=== PATIENT | male | born 1965 | race Caucasian/White ===

== ENCOUNTER 2024-05-12 13:41 | Outpatient (CLI) | payer BC, SELFPAY ==
--- NOTE | 2024-05-12 13:48 | CT_ITS ---
FINAL REPORT TECHNIQUE: After the administration of intravenous contrast, axial images were obtained through the abdomen and pelvis by computed tomography. This study was performed with technique to keep radiation doses as low as reasonably achievable, (ALARA). Individualized dose reduction techniques using automated exposure control or adjustment of the MA and/or KV according to the patient's size were employed. CLINICAL HISTORY: N/V/abd pain/fever no BM x 3 days r/o SBO FINDINGS: Abdomen: The lung bases are clear. The liver is normal in size and attenuation. There is mild, nonspecific gallbladder wall thickening. The spleen is unremarkable. The adrenals are normal. The pancreas is unremarkable. The kidneys enhance appropriately. There is a small left renal cyst measuring less than 1 cm which is likely benign. No follow-up needed. The aorta is normal in caliber. There is no free fluid or adenopathy. Pelvis: The appendix is normal. There is mild stenosis of the right common iliac artery. The urinary bladder is unremarkable. There is no free fluid or adenopathy. IMPRESSION: Mild, nonspecific gallbladder wall thickening. Reviewed, Interpreted and Dictated by Rajiv Wiley III, MD Transcribed by Kalee Ceja Authenticated and [facility]
[2024-05-12 14:12] LABS: Basophils # 0.2 K/mm3 (0-0.2); Basophils % 1.1 % (0.1-2.0); Eosinophils # 0.1 K/mm3 (0.0-0.4); Eosinophils % 0.5 % (0.1-12.0); Hematocrit 50.1 % (42.0-52.0); Hemoglobin 17.6 g/dL (14.1-18.0); Lymphocytes # 2.3 K/mm3 (0.7-4.5); Lymphocytes % 15.4 % (10-50); Mean Corpuscular HGB Conc 35.1 g/dL (31.8-35.4); Mean Corpuscular Hemoglobin 31.3 pg (27.0-31.2); Mean Corpuscular Volume 89.1 fl (80-94); Mean Platelet Volume 8.2 fl (7.4-10.4); Monocytes # 1.2 K/mm3 (0.1-1.0); Monocytes % 8.1 % (1.7-9.3); Neutrophils # 11.1 K/mm3 (1.8-7.8); Neutrophils % 74.8 % (37.0-80.0); Platelet Count 209 K/mm3 (142-424); Red Blood Count 5.63 M/mm3 (4.60-6.20); White Blood Count 14.9 K/mm3 (4.8-10.8)
[2024-05-12 14:17] LABS: Albumin Level 4.9 g/dl (3.5-5.0); Chloride 92 mmol/L (98-107); Sodium 129 mmol/L (136-145)
[2024-05-12 14:18] LABS: Potassium 3.5 mmoL/L (3.5-5.1)
[2024-05-12 14:20] LABS: Alanine Aminotransferase 22 U/L (12-78); Albumin/Globulin Ratio 1.7 (1.1-1.8); Alkaline Phosphatase 128 U/L (38-126); Anion Gap 17.5 mEq/L (5-15); Aspartate Amino Transferase 28 U/L (17-59); Bilirubin,Total 1.1 mg/dl (0.2-1.3); Blood Urea Nitrogen 16 mg/dl (9-20); Carbon Dioxide 23 mmol/L (22.0-30.0); Estimated Glomerular Filt Rate 86 ml/min (>60); GFR (African American) 104 ML/MIN (>60); Globulin 2.9 g/dL (1.3-3.2); Total Protein,Serum 7.8 g/dl (6.3-8.2)
[2024-05-12 14:21] LABS: Calcium 9.4 mg/dl (8.4-10.2); Glucose 305 mg/dl (74-100)
[2024-05-12 14:41] LABS: Lipase 1595 U/L (23-300)
[2024-05-12] MEDS: SODIUM CHLORIDE 0.9% 10ML SYR (RAD ONLY) 10 ML IV (15:05)
[2024-05-12] MEDS: IOPAMIDOL-370 (76%);100ML BOTTLE 75 ML IV (15:05)
== END 2024-05-12 23:59 | disposition home or self-care (01) ==
LOC: RAD 13:43
PROVIDERS: PCP Nurse Practitioner Family; Visit Provider Internal Medicine Gastroenterology
DX: R10.84 Generalized abdominal pain (principal); R10.13 Epigastric pain; R50.9 Fever, unspecified; R11.2 Nausea with vomiting, unspecified; K59.00 Constipation, unspecified
CPT/HCPCS: 36415; 74177; 80053; 83690; 85025; Q9967

== ENCOUNTER 2024-05-12 17:53 | Observation (INO) | payer BC, SELFPAY ==
--- NOTE | 2024-05-12 19:47 | ECG_ITS ---
APPROVED REPORT Exam: Resting ECG HR:87 bpm ECG Measurements Heart Rate 87 AXES MN 170 P 71 QRSd 100 QRS 67 QT 347 T 75 QTc 392 Conclusion SINUS RHYTHM NORMAL ECG UNCONFIRMED REPORT Electronically signed by : Haroon Dumont MD 05/14/2024 08:15:56
[2024-05-12 20:00] VITALS: BP 146/97; PULSE 101; RESP 18; TEMP 37.7; O2SAT 98
[2024-05-12 21:00] VITALS: PULSE 101; RESP 18; O2SAT 98
[2024-05-12] MEDS: LORazepam 1MG TABLET 1 MG PO (21:52)
[2024-05-12] MEDS: 0.9 % SODIUM CHLORIDE 1000ML 1,000 ML 999 ML IV (22:51)
[2024-05-12 23:25] LABS: Basophils # 0.1 K/mm3 (0-0.2); Basophils % 0.8 % (0.1-2.0); Eosinophils # 0.1 K/mm3 (0.0-0.4); Eosinophils % 0.5 % (0.1-12.0); Hematocrit 46.8 % (42.0-52.0); Hemoglobin 16.6 g/dL (14.1-18.0); Lymphocytes # 2.4 K/mm3 (0.7-4.5); Mean Corpuscular HGB Conc 35.5 g/dL (31.8-35.4); Mean Corpuscular Hemoglobin 30.9 pg (27.0-31.2); Mean Platelet Volume 8.2 fl (7.4-10.4); Monocytes # 0.8 K/mm3 (0.1-1.0); Monocytes % 7.3 % (1.7-9.3); Neutrophils # 7.5 K/mm3 (1.8-7.8); Neutrophils % 69.3 % (37.0-80.0); Platelet Count 179 K/mm3 (142-424); Red Blood Count 5.38 M/mm3 (4.60-6.20); White Blood Count 10.9 K/mm3 (4.8-10.8)
[2024-05-12 23:32] LABS: Albumin Level 4.4 g/dl (3.5-5.0); Chloride 91 mmol/L (98-107); Potassium 3.1 mmoL/L (3.5-5.1); Sodium 126 mmol/L (136-145)
[2024-05-12 23:35] LABS: Alanine Aminotransferase 20 U/L (12-78); Albumin/Globulin Ratio 1.8 (1.1-1.8); Alkaline Phosphatase 110 U/L (38-126); Anion Gap 13.1 mEq/L (5-15); Aspartate Amino Transferase 23 U/L (17-59); Bilirubin,Total 0.9 mg/dl (0.2-1.3); Blood Urea Nitrogen 15 mg/dl (9-20); Calcium 8.8 mg/dl (8.4-10.2); Carbon Dioxide 25 mmol/L (22.0-30.0); Cholesterol 155 mg/dl (140-200); Estimated Glomerular Filt Rate 99 ml/min (>60); GFR (African American) 119 ML/MIN (>60); Globulin 2.4 g/dL (1.3-3.2); Glucose 248 mg/dl (74-100); Lipase 345 U/L (23-300); Total Protein,Serum 6.8 g/dl (6.3-8.2); Triglycerides 140 mg/dl (30-150); VLDL Cholesterol 28 mg/dL (0-40)
[2024-05-12 23:36] LABS: Chol/HDL Ratio 5.7 (1-3.5); HDL Cholesterol 27 mg/dl (40-60)
[2024-05-12 23:46] LABS: Direct LDL Cholesterol 94.45 mg/dL (100-129)
[2024-05-12 23:49] LABS: Lactate Venous 1.7 mmol/L (0.4-2.0)
[2024-05-12] MEDS: TRAZODONE 50MG TABLET 100 MG PO (23:49)
[2024-05-13] VITALS: BMI 21.9
[2024-05-13 00:02] LABS: Troponin I < 0.01 ng/ml (0.00-0.034)
--- NOTE | 2024-05-13 01:39 | PC.NURSE ---
Late Entry: (21:39) Patient's admission and home medication reconciliation completed. Yash [employer]OR[employer] was notified [id number]. Patient refused fingerstick glucose at bedside for 21:00; will reevaluate in the morning for next fingerstick glucose check. Patient's home medications were locked in [facility]. Patient is currently resting supine with at bedside. Patient denies any further complaints thus far.
[2024-05-13 04:00] VITALS: BP 151/92; PULSE 76; RESP 18; TEMP 37; O2SAT 97; BMI 21.9
--- NOTE | 2024-05-13 04:17 | PC.NURSE ---
Addendum entered by Sidra Olson RN 05/13/24 06:20: Patient's fingerstick blood glucose for 06:00 this morning was 215. Patient stated that he does not want to take insulin and refuses it at this time. Original Note: Mr Bettencourt was newly admitted yesterday evening during the previous shift as a direct admit for cholecystitis. He has a history of pancreatitis, hypertension, and diabetes. He has reported mild discomfort in the epigastric area and upper abdomen, but has not requested for any pain medication this shift. He is alert and oriented x4. His admission and home medication reconciliation were completed this shift (see prior note). Patient's has remained at bedside throughout the night. Patient projected anxiety and fear during needle sticks and IV insertion; a one time dose of 1 mg of lorazepam was given to the patient per OCT prior to IV insertion this shift. Patient tolerated insertion well. Patient received trazodone PO per MAR this shift and a 1000 mL bag of normal saline at 999 mL/hr intravenously. Upon auscultation, patient's lung sounds were clear and bowel sounds were active. S1/S2 heart sounds were heard. Patient received ice water and Gatorade prior to midnight; he has remained NPO since. Patient is currently observed to have eyes closed, respirations even and unlabored on room air, and no apparent distress. Blood pressure, heart rate, and temperature readings were slightly elevated this shift. No acute changes noted thus far. Patient does not have any complaints at this time. Call light within reach.
[2024-05-13 07:24] LABS: Basophils # 0.1 K/mm3 (0-0.2); Basophils % 0.5 % (0.1-2.0); Eosinophils % 0.3 % (0.1-12.0); Hematocrit 43.8 % (42.0-52.0); Hemoglobin 15.6 g/dL (14.1-18.0); Lymphocytes # 3.1 K/mm3 (0.7-4.5); Lymphocytes % 32.4 % (10-50); Mean Corpuscular HGB Conc 35.6 g/dL (31.8-35.4); Mean Corpuscular Volume 89.6 fl (80-94); Mean Platelet Volume 8.7 fl (7.4-10.4); Monocytes # 0.7 K/mm3 (0.1-1.0); Monocytes % 7.5 % (1.7-9.3); Neutrophils # 5.6 K/mm3 (1.8-7.8); Neutrophils % 59.3 % (37.0-80.0); Platelet Count 166 K/mm3 (142-424); Red Blood Count 4.88 M/mm3 (4.60-6.20); Red Cell Distribution Width 13.2 % (11.5-17.5); White Blood Count 9.4 K/mm3 (4.8-10.8)
[2024-05-13 07:28] LABS: Albumin Level 3.9 g/dl (3.5-5.0); Chloride 95 mmol/L (98-107); Potassium 3.2 mmoL/L (3.5-5.1); Sodium 128 mmol/L (136-145)
[2024-05-13 07:31] LABS: Alanine Aminotransferase 15 U/L (12-78); Albumin/Globulin Ratio 1.8 (1.1-1.8); Alkaline Phosphatase 98 U/L (38-126); Anion Gap 10.2 mEq/L (5-15); Aspartate Amino Transferase 19 U/L (17-59); Bilirubin,Total 1.1 mg/dl (0.2-1.3); Blood Urea Nitrogen 14 mg/dl (9-20); Carbon Dioxide 26 mmol/L (22.0-30.0); Creatinine Clearance Estimated 86 mL/min (50-200); Estimated Glomerular Filt Rate 86 ml/min (>60); GFR (African American) 104 ML/MIN (>60); Globulin 2.2 g/dL (1.3-3.2); Total Protein,Serum 6.1 g/dl (6.3-8.2)
[2024-05-13 07:32] LABS: Calcium 8.5 mg/dl (8.4-10.2); Glucose 204 mg/dl (74-100)
[2024-05-13 07:34] LABS: POC Glucose,Bedside 215 (70-110)
--- NOTE | 2024-05-13 07:39 | P.PN_ITS ---
Subjective *Date: 05/13/24 *Time: 17:11 Interval history: Patient states he is feeling somewhat better this morning. No nausea or vomiting overnight. Pain resolving. Interested in eating. No diarrhea overnight. Stable on room air. Medical Exam Vital signs and Labs for Last 24 Hours: Vital Signs Temp Pulse Resp BP Pulse Ox O2 Del Method 05/13/24 07:00 Room Air 05/13/24 05:00 Room Air 05/13/24 04:00 98.6 F 76 18 151/92 H 97 Room Air 05/13/24 03:00 Room Air 05/13/24 01:00 Room Air 05/12/24 23:00 Room Air 05/12/24 21:00 101 H 18 98 Room Air 05/12/24 21:00 Room Air 05/12/24 20:00 99.9 F H 101 H 18 146/97 H 98 Room Air Intake and Output 05/12/24 05/12/24 05/13/24 15:59 23:59 07:59 Intake Total 1240 / 1240 Output Total 0 / 0 Balance 1240 / 1240 Intake: Intake, Oral Amount 240 / 240 Infusion Intake 1000 / 1000 0.9 % Sodium Chloride 1000ML 1, 1000 / 1000 000 ml @ 999 mls/hr IV .Q1H1M ONE Rx#:[id number] Output: Output, Urine Amount 0 / 0 Other: Number of Unmeasured Voids 1 Weight 69.536 kg Patient Weight 05/13/24 23:59 Weight 69.536 kg Laboratory Results - last 24 hr 05/12/24 18:41: VBG Lactic Acid 1.7 05/12/24 23:11: WBC 10.9 H D, RBC 5.38, Hgb 16.6, Hct 46.8, MCV 87.0, MCH 30.9, MCHC 35.5 H, RDW 13.0, Plt Count 179, MPV 8.2, Neut % (Auto) 69.3, Lymph % (Auto) 22.0, [place] % (Auto) 7.3, Eos % (Auto) 0.5, Baso % (Auto) 0.8, Neut # (Auto) 7.5, Lymph # (Auto) 2.4, [place] # (Auto) 0.8, Eos # (Auto) 0.1, Baso # (Auto) 0.1, Sodium 126 L, Potassium 3.1 L, Chloride 91 L, Carbon Dioxide 25, Anion Gap 13.1, BUN 15, Creatinine 0.80, Estimated GFR 99, Est GFR ( Amer) 119, Glucose 248 H, Calcium 8.8, Total Bilirubin 0.9, AST 23, ALT 20, Alkaline Phosphatase 110, Troponin I < 0.01, Total Protein 6.8, Albumin 4.4 D, Globulin 2.4, Albumin/Globulin Ratio 1.8, Triglycerides 140, Cholesterol 155, LDL Cholesterol Direct 94.45 L, VLDL Cholesterol 28, HDL Cholesterol 27 L, Cholesterol/HDL Ratio 5.7 H, Lipase 345 H 05/13/24 06:17: POC Glucose 215 H 05/13/24 06:30: WBC 9.4, RBC 4.88, Hgb 15.6, Hct 43.8, MCV 89.6, MCH 32.0 H, MCHC 35.6 H, RDW 13.2, Plt Count 166, MPV 8.7, Neut % (Auto) 59.3, Lymph % (Auto) 32.4, [place] % (Auto) 7.5, Eos % (Auto) 0.3, Baso % (Auto) 0.5, Neut # (Auto) 5.6, Lymph # (Auto) 3.1, [place] # (Auto) 0.7, Eos # (Auto) 0.0, Baso # (Auto) 0.1, Sodium 128 L, Potassium 3.2 L, Chloride 95 L, Carbon Dioxide 26, Anion Gap 10.2, BUN 14, Creatinine 0.90, Estimated Creat Clear 86, Estimated GFR 86, Est GFR ( Amer) 104, Glucose 204 H, Calcium 8.5, Total Bilirubin 1.1, AST 19, ALT 15, Alkaline Phosphatase 98, Total Protein 6.1 L, Albumin 3.9 D, Globulin 2.2, Albumin/Globulin Ratio 1.8 I & O for Labs for Last 24 Hours: Intake & Output 05/10/24 05/11/24 05/12/24 05/13/24 23:59 23:59 23:59 23:59 Intake Total 1240 / 1240 Output Total 0 / 0 Balance 1240 / 1240 Weight 69.536 kg Constitutional: Present no acute distress, thin and cooperative Head: Present atraumatic and normocephalic ENT: Present normal exam Respiratory: Present normal respiratory effort; Absent rhonchi, wheezes or crackles Cardiac: Present Reg Rate and Rhythm GI: Present soft and normal bowel sounds; Absent distention or tenderness Extremities: Present normal inspection and full ROM Skin: Present intact; Absent erythema Neuro: Present Grossly Intact, alert, awake, oriented x 3 and moves all extremities Assessment and Plan *Assessment and plan (1) Nausea & vomiting: Status: Acute Category: Medical Code(s): R11.2 - Nausea with vomiting, unspecified (2) Epigastric pain: Status: Acute Category: Medical Code(s): R10.13 - Epigastric pain (3) Acute pancreatitis: Status: Acute Category: Medical Code(s): K85.90 - Acute pancreatitis without necrosis or infection, unspecified (4) Cholecystitis: Status: Acute Category: Medical Code(s): K81.9 - Cholecystitis, unspecified (5) Diabetes: Status: Acute Category: Medical Code(s): E11.9 - Type 2 diabetes mellitus without complications (6) HTN (hypertension): Status: Acute Category: Medical Code(s): I10 - Essential (primary) hypertension Plan Paul Bettencourt is a 59 year old made with a medical history significant for type 2 diabetes, hypertension who is a direct admit from our GI clinic for intractable nausea/vomiting and abdominal pain. I spoke with patient's PCP Trinity Vela and accepted patient for direct admission after CT abdomen revealed gallbladder wall thickening and outpatient bloodwork revealed elevated lipase to 1595 suggesting acute gallstone pancreatitis. On arrival to the floor, patient was sitting comfortably in chair without acute distress. He states he has been have N/V since Sunday (5 days) which has actually improved today, however he states he has not tried to eat anything today. He reports eating a large meal on Sunday and soon after symptoms of epigastric and RUQ abdominal began with non- bilious vomiting. Denies diarrhea. He went to his GI office yesterday who obtained blood and CT abdomen/pelvis with findings mentioned. Patient denies alcohol use, with no history of pancreatitis or cholecystisis. 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 Feeling somewhat better this morning. GI has seen patient. Given his improvement in symptoms, will advance diet. Problems addressed as follows: #Suspected acute gallstone pancreatitis, resolving #Mild cholecystitis, resolving #Intractable nausea/vomiting, resolving - CT abdomen/pelvis on 05/12/24 shows nonspecific gallbladder wall thickening. Outpatient lipase elevated to 1595, ALP mildly elevated 128. Na 126. - Patient's symptoms seemed to have improved overnight. No further nausea or vomiting -Initiate on clear liquid diet -Lipase improving, down to 345 today. White count normalized 9.4. Sodium improving at 128. Potassium 3.2. Replace IV with 20 mEq. Kidney function normal. - Repeat CBC, CMP, magnesium ordered for the morning - Discussed case with GI this morning, recommend advancing diet. Further management as an outpatient. - Patient can ration for possible cholecystectomy as an outpatient. #Type 2 diabetes - LDSSI, ACHS glucose checks. A1c ordered for the morning. #Hypertension - Continue amlodipine 10 mg daily, carvedilol 25 mg twice daily. Continue Elavil 50 mg nightly for sleep and mood. Along with trazodone 100 mg nightly. Lovenox 40mg FULL CODE Advance diet today. Initiate clears. If tolerates, will advance to full this evening
--- NOTE | 2024-05-13 07:44 | HMH.PHAINT1 ---
Pharmacy Intervention Comments: Home medications verified using list from pharmacy.
[2024-05-13 08:00] VITALS: BP 127/74; PULSE 78; RESP 18; TEMP 37.7; O2SAT 98
[2024-05-13 08:26] LABS: Lipase 269 U/L (23-300)
--- NOTE | 2024-05-13 08:50 | US_ITS ---
FINAL REPORT TECHNIQUE: Sonographic images of the right upper quadrant were obtained. CLINICAL HISTORY: Evaluate gallbladder and pancreas. Acute upper abdominal pain. FINDINGS: The pancreas is partially obscured.The liver has an unremarkable appearance. There is mild gallbladder wall thickening up to 4 mm. This is nonspecific. There are no gallstones identified. There is no evidence of biliary ductal dilatation.The common duct measures 4mm. Limited images of the right kidney are unremarkable. IMPRESSION: Mild nonspecific gallbladder wall thickening. Otherwise, unremarkable right upper quadrant ultrasound. Reviewed, Interpreted and Dictated by Rajiv Wiley III, MD Transcribed by Leana Small PA-C Authenticated and . [facility]
[2024-05-13] MEDS: CARVEDILOL 25MG TABLET 25 MG PO ×2 (09:00→20:15)
[2024-05-13] MEDS: KCl 10mEq/100ml 100 ML 100 MEQ IV ×2 (09:00→12:05)
[2024-05-13] MEDS: AMLODIPINE 10MG TABLET 10 MG PO (09:00)
[2024-05-13] MEDS: LACTATED RINGERS 1000ML 1,000 ML 125 ML IV (09:32)
--- NOTE | 2024-05-13 10:04 | EXP.HP ---
History of Present Illness *Admission Date: 05/12/24 *Reason for visit:: Intractable nausea/vomiting, abdominal pain *History of present illness: Paul Bettencourt is a 59 year old made with a medical history significant for type 2 diabetes, hypertension who is a direct admit from our GI clinic for intractable nausea/vomiting and abdominal pain. I spoke with patient's PCP Angeline Vela and accepted patient for direct admission after CT abdomen revealed gallbladder wall thickening and outpatient bloodwork revealed elevated lipase to 1595 suggesting acute gallstone pancreatitis. On arrival to the floor, patient was sitting comfortably in chair without acute distress. He states he has been have N/V since Sunday (5 days) which has actually improved today, however he states he has not tried to eat anything today. He reports eating a large meal on Sunday and soon after symptoms of epigastric and RUQ abdominal began with non-bilious vomiting. Denies diarrhea. He went to his PCP's office yesterday who obtained blood and CT abdomen/pelvis with findings mentioned. Patient denies alcohol use, with no history of pancreatitis or cholecystisis. 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 [facility] Disclaimer: The information contained in this section may have been updated after the patient was seen, as this information can be updated by other users. Medical History (Updated 05/13/24 @ 10:32 by Desmond Malin MD) HTN (hypertension) Diabetes Family History (Updated 05/12/24 @ 22:14 by Sidra Olson RN) Other Alzheimer dementia Diabetes Social History (Updated 05/12/24 @ 22:15 by Sidra Olson RN) Smoking Status: Former smoker alcohol intake: never current occupational status: employed Travel in the last 8 weeks: None Other Medical History Have you received the Flu Vaccine for this season: No Have you received the Pneumonia Vaccine: No Meds Home Medications and Allergies Home Medications ?Medication ?Instructions ?Recorded ?Confirmed ?Type amitriptyline 50 mg tablet 50 mg PO HS 05/12/24 05/12/24 History amlodipine 10 mg tablet 10 mg PO DAILY 05/12/24 05/12/24 History carvedilol 25 mg tablet 25 mg PO BID 05/12/24 05/12/24 History glipizide 5 mg tablet 5 mg PO DAILY 05/12/24 05/12/24 History pravastatin 20 mg tablet 20 mg PO HS 05/12/24 05/12/24 History trazodone 100 mg tablet 100 mg PO HS 05/12/24 05/13/24 History New Prescriptions to Start Prescriptions: Allergies Allergy/AdvReac Type Severity Reaction Status Date / Time Lisinopril AdvReac Uncoded 05/12/24 12:53 Exam Data for Last 24 hours Vital signs and Labs for Last 24 Hours: Temp Pulse Resp BP Pulse Ox O2 Del Method 98.6 F 76 18 151/92 H 97 Room Air 05/13/24 04:00 05/13/24 04:00 05/13/24 04:00 05/13/24 04:00 05/13/24 04:00 05/13/24 08:00 Laboratory Results - last 24 hr 05/12/24 18:41: VBG Lactic Acid 1.7 05/12/24 23:11: WBC 10.9 H D, RBC 5.38, Hgb 16.6, Hct 46.8, MCV 87.0, MCH 30.9, MCHC 35.5 H, RDW 13.0, Plt Count 179, MPV 8.2, Neut % (Auto) 69.3, Lymph % (Auto) 22.0, [place] % (Auto) 7.3, Eos % (Auto) 0.5, Baso % (Auto) 0.8, Neut # (Auto) 7.5, Lymph # (Auto) 2.4, [place] # (Auto) 0.8, Eos # (Auto) 0.1, Baso # (Auto) 0.1, Sodium 126 L, Potassium 3.1 L, Chloride 91 L, Carbon Dioxide 25, Anion Gap 13.1, BUN 15, Creatinine 0.80, Estimated GFR 99, Est GFR ( Amer) 119, Glucose 248 H, Calcium 8.8, Total Bilirubin 0.9, AST 23, ALT 20, Alkaline Phosphatase 110, Troponin I < 0.01, Total Protein 6.8, Albumin 4.4 D, Globulin 2.4, Albumin/Globulin Ratio 1.8, Triglycerides 140, Cholesterol 155, LDL Cholesterol Direct 94.45 L, VLDL Cholesterol 28, HDL Cholesterol 27 L, Cholesterol/HDL Ratio 5.7 H, Lipase 345 H 05/13/24 06:17: POC Glucose 215 H 05/13/24 06:30: WBC 9.4, RBC 4.88, Hgb 15.6, Hct 43.8, MCV 89.6, MCH 32.0 H, MCHC 35.6 H, RDW 13.2, Plt Count 166, MPV 8.7, Neut % (Auto) 59.3, Lymph % (Auto) 32.4, [place] % (Auto) 7.5, Eos % (Auto) 0.3, Baso % (Auto) 0.5, Neut # (Auto) 5.6, Lymph # (Auto) 3.1, [place] # (Auto) 0.7, Eos # (Auto) 0.0, Baso # (Auto) 0.1, Sodium 128 L, Potassium 3.2 L, Chloride 95 L, Carbon Dioxide 26, Anion Gap 10.2, BUN 14, Creatinine 0.90, Estimated Creat Clear 86, Estimated GFR 86, Est GFR ( Amer) 104, Glucose 204 H, Calcium 8.5, Total Bilirubin 1.1, AST 19, ALT 15, Alkaline Phosphatase 98, Total Protein 6.1 L, Albumin 3.9 D, Globulin 2.2, Albumin/Globulin Ratio 1.8, Lipase 269 I & O for Last 24 hours: Intake & Output 05/10/24 05/11/24 05/12/24 05/13/24 23:59 23:59 23:59 23:59 Intake Total 1440 / 1440 Output Total 0 / 0 Balance 1440 / 1440 Weight 69.536 kg Constitutional Constitutional: no acute distress *Routine HEENT Exam Head: Present normocephalic Eye: Present EOMI and PERRL ENT: Present mucous membranes moist *Routine Neck Exam Neck: Present supple; Absent lymphadenopathy *Routine Respiratory Exam Respiratory: Present CTA bilaterally *Routine Cardiovascular Exam Cardiovascular: Present RRR *Routine Abdominal Exam Abdominal: Present soft and normoactive bowel sounds; Absent tenderness Comments: Mild RUQ and epigastric tenderness with deep palpation. *Routine Rectal Exam Rectal:: deferred *Routine Genitalia Exam Genitalia:: deferred *Routine Extremities Exam Extremities: Absent cyanosis, clubbing or edema *Routine Skin Exam Skin: Present warm; Absent rash *Routine Neurological Exam Neurological: Present alert and oriented X3 Assessment and Plan *Assessment and plan (1) Nausea & vomiting: Status: Acute Category: Medical Code(s): R11.2 - Nausea with vomiting, unspecified (2) Epigastric pain: Status: Acute Category: Medical Code(s): R10.13 - Epigastric pain (3) Acute pancreatitis: Status: Acute Category: Medical Code(s): K85.90 - Acute pancreatitis without necrosis or infection, unspecified (4) Cholecystitis: Status: Acute Category: Medical Code(s): K81.9 - Cholecystitis, unspecified (5) Diabetes: Status: Acute Category: Medical Code(s): E11.9 - Type 2 diabetes mellitus without complications (6) HTN (hypertension): Status: Acute Category: Medical Code(s): I10 - Essential (primary) hypertension Plan Paul Bettencourt is a 59 year old made with a medical history significant for type 2 diabetes, hypertension who is a direct admit from our GI clinic for intractable nausea/vomiting and abdominal pain. I spoke with patient's PCP Angeline Vela and accepted patient for direct admission after CT abdomen revealed gallbladder wall thickening and outpatient bloodwork revealed elevated lipase to 1595 suggesting acute gallstone pancreatitis. On arrival to the floor, patient was sitting comfortably in chair without acute distress. He states he has been have N/V since Sunday (5 days) which has actually improved today, however he states he has not tried to eat anything today. He reports eating a large meal on Sunday and soon after symptoms of epigastric and RUQ abdominal began with non-bilious vomiting. Denies diarrhea. He went to his PCP's office yesterday who obtained blood and CT abdomen/pelvis with findings mentioned. Patient denies alcohol use, with no history of pancreatitis or cholecystisis. 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 #Suspected acute gallstone pancreatitis, resolving #Mild cholecystitis, resolving #Intractable nausea/vomiting, resolving - CT abdomen/pelvis on 05/12/24 shows nonspecific gallbladder wall thickening. Outpatient lipase elevated to 1595, ALP mildly elevated 128. Na 126. - Patient's symptoms seemed to have improved on admission, but continues to have mild nausea, abdominal pain, and decreased PO intake. - Sequalae likely represents acute gallstone pancreatitis, mild cholecystitis, with gallstone likely having passed the CBD as lipase has normalized to 269 today. - Follow-up RUQ for further evaluation. - Consulted GI for further evaluation. NPO for now for possible ERCP. - Initial leukocytosis has resolved without antibiotics, likely reactive from N/V and abdominal pain. With hold off on antibiotics for now. Continue to monitor. - Lipid and calcium within acceptable limits to suggest hyperglycemias or hyperglycemia as the etiology for gallstone. - Patient can likely get elective cholecystectomy outpatient given that he is more stable today. #Type 2 diabetes - LDSSI, ACHS glucose checks. #Hypertension - Resumed home amlodipine, carvedilol. Lovenox 40mg FULL CODE
[2024-05-13 10:10] LABS: POC Glucose,Bedside 188 (70-110)
--- NOTE | 2024-05-13 11:50 | EXP.GE.CONS ---
History of Present Illness *Admission Date: 05/12/24 *History of present illness: This is a 59-year-old male with history of diabetes and sphincter of Oddi dysfunction diagnosed about 10 years ago who was seen in our office yesterday for nausea vomiting abdominal pain, fever chills and bodyaches at home. Patient was exquisitely tender to palpation right upper quadrant epigastric and left upper quadrant. He had had intractable nausea and vomiting since Sunday and no bowel movement since Sunday. He had dry mucous membranes. He was able to drink but not keep food down. He was urinating. Sent for stat CT and lab work. Labs showed a lipase level over 1500 with elevated white blood cell count over 14. He did have glucose level of 305 with known diabetes. He was hyponatremic at 129. CT scan showed some mild wall thickening of the gallbladder but no obvious pancreatitis. Discussed with the hospitalist who agreed to direct admission. He has been treated with electrolyte replacement and IV fluids. He started to have great improvement of his symptoms. His lipase level dropped into the 300s. His white blood cell count was down just above 10. Today the patient has had resolution of his abdominal pain. Gallbladder ultrasound notes mild wall thickening but no gallstones seen and pancreas is partially obscured. He is wanting to go home today. [facility] Disclaimer: The information contained in this section may have been updated after the patient was seen, as this information can be updated by other users. Medical History (Updated 05/13/24 @ 10:32 by Desmond Malin MD) HTN (hypertension) Diabetes Family History (Updated 05/12/24 @ 22:14 by Sidra Olson RN) Other Alzheimer dementia Diabetes Social History (Updated 05/12/24 @ 22:15 by Sidra Olson RN) Smoking Status: Former smoker alcohol intake: never current occupational status: employed Travel in the last 8 weeks: None Review of Systems Constitutional Constitutional: Reports system reviewed and no additional complaints, except as documented, Denies body ache(s), Denies chills and Denies fever(s) Eyes Eyes: Reports system reviewed and no additional complaints, except as documented ENT Ears, Nose, Mouth, and Throat: Reports system reviewed and no additional complaints, except as documented and Denies dysphagia *Cardiovascular Cardiovascular: Reports system reviewed and no additional complaints, except as documented and Denies dyspnea *Respiratory Respiratory: Reports system reviewed and no additional complaints, except as documented, Denies chest congestion, Denies cough and Denies dyspnea *Gastrointestinal Gastrointestinal: Reports system reviewed and no additional complaints, except as documented, Denies abdominal pain (Resolved), Denies belching, Denies bloating, Denies change in bowel habits, Reports constipation, Denies dyspepsia, Denies dysphagia, Denies hematochezia, Denies melena, Denies nausea (Nausea and vomiting well-controlled) and Denies vomiting *Musculoskeletal Musculoskeletal: Reports system reviewed and no additional complaints, except as documented *Neurologic Neurologic: Reports system reviewed and no additional complaints, except as documented Meds Home Medications and Allergies Home Medications ?Medication ?Instructions ?Recorded ?Confirmed ?Type amitriptyline 50 mg tablet 50 mg PO HS 05/12/24 05/12/24 History amlodipine 10 mg tablet 10 mg PO DAILY 05/12/24 05/12/24 History carvedilol 25 mg tablet 25 mg PO BID 05/12/24 05/12/24 History glipizide 5 mg tablet 5 mg PO DAILY 05/12/24 05/12/24 History pravastatin 20 mg tablet 20 mg PO HS 05/12/24 05/12/24 History trazodone 100 mg tablet 100 mg PO HS 05/12/24 05/13/24 History New Prescriptions to Start Prescriptions: Allergies Allergy/AdvReac Type Severity Reaction Status Date / Time Lisinopril AdvReac Uncoded 05/12/24 12:53 Exam (Inpt) Vital signs and Labs for Last 24 Hours: Temp Pulse Resp BP Pulse Ox O2 Del Method 99.9 F H 78 18 127/74 98 Room Air 05/13/24 08:00 05/13/24 08:00 05/13/24 08:00 05/13/24 08:00 05/13/24 08:00 05/13/24 10:16 Laboratory Results - last 24 hr 05/12/24 18:41: VBG Lactic Acid 1.7 05/12/24 23:11: WBC 10.9 H D, RBC 5.38, Hgb 16.6, Hct 46.8, MCV 87.0, MCH 30.9, MCHC 35.5 H, RDW 13.0, Plt Count 179, MPV 8.2, Neut % (Auto) 69.3, Lymph % (Auto) 22.0, [place] % (Auto) 7.3, Eos % (Auto) 0.5, Baso % (Auto) 0.8, Neut # (Auto) 7.5, Lymph # (Auto) 2.4, [place] # (Auto) 0.8, Eos # (Auto) 0.1, Baso # (Auto) 0.1, Sodium 126 L, Potassium 3.1 L, Chloride 91 L, Carbon Dioxide 25, Anion Gap 13.1, BUN 15, Creatinine 0.80, Estimated GFR 99, Est GFR ( Amer) 119, Glucose 248 H, Calcium 8.8, Total Bilirubin 0.9, AST 23, ALT 20, Alkaline Phosphatase 110, Troponin I < 0.01, Total Protein 6.8, Albumin 4.4 D, Globulin 2.4, Albumin/Globulin Ratio 1.8, Triglycerides 140, Cholesterol 155, LDL Cholesterol Direct 94.45 L, VLDL Cholesterol 28, HDL Cholesterol 27 L, Cholesterol/HDL Ratio 5.7 H, Lipase 345 H 05/13/24 06:17: POC Glucose 215 H 05/13/24 06:30: WBC 9.4, RBC 4.88, Hgb 15.6, Hct 43.8, MCV 89.6, MCH 32.0 H, MCHC 35.6 H, RDW 13.2, Plt Count 166, MPV 8.7, Neut % (Auto) 59.3, Lymph % (Auto) 32.4, [place] % (Auto) 7.5, Eos % (Auto) 0.3, Baso % (Auto) 0.5, Neut # (Auto) 5.6, Lymph # (Auto) 3.1, [place] # (Auto) 0.7, Eos # (Auto) 0.0, Baso # (Auto) 0.1, Sodium 128 L, Potassium 3.2 L, Chloride 95 L, Carbon Dioxide 26, Anion Gap 10.2, BUN 14, Creatinine 0.90, Estimated Creat Clear 86, Estimated GFR 86, Est GFR ( Amer) 104, Glucose 204 H, Calcium 8.5, Total Bilirubin 1.1, AST 19, ALT 15, Alkaline Phosphatase 98, Total Protein 6.1 L, Albumin 3.9 D, Globulin 2.2, Albumin/Globulin Ratio 1.8, Lipase 269 05/13/24 10:03: POC Glucose 188 H I & O for Labs for Last 24 Hours: Intake & Output 05/10/24 05/11/24 05/12/24 05/13/24 11:59 11:59 11:59 11:59 Intake Total 1440 Output Total 0 Balance 1440 Weight 69.536 kg Constitutional: no acute distress and cooperative Head: Present normocephalic and atraumatic Neck: Present normal inspection Respiratory: Present normal respiratory effort; Absent rhonchi, stridor or wheezes Cardiac: Present Reg Rate and Rhythm GI: Present soft and normal bowel sounds; Absent distention, tenderness, guarding or Lopez's sign Results Labs 05/14/24 07:12 05/14/24 07:12 Labs: Laboratory Results - last 24 hr 05/12/24 18:41: VBG Lactic Acid 1.7 05/12/24 23:11: WBC 10.9 H D, RBC 5.38, Hgb 16.6, Hct 46.8, MCV 87.0, MCH 30.9, MCHC 35.5 H, RDW 13.0, Plt Count 179, MPV 8.2, Neut % (Auto) 69.3, Lymph % (Auto) 22.0, [place] % (Auto) 7.3, Eos % (Auto) 0.5, Baso % (Auto) 0.8, Neut # (Auto) 7.5, Lymph # (Auto) 2.4, [place] # (Auto) 0.8, Eos # (Auto) 0.1, Baso # (Auto) 0.1, Sodium 126 L, Potassium 3.1 L, Chloride 91 L, Carbon Dioxide 25, Anion Gap 13.1, BUN 15, Creatinine 0.80, Estimated GFR 99, Est GFR ( Amer) 119, Glucose 248 H, Calcium 8.8, Total Bilirubin 0.9, AST 23, ALT 20, Alkaline Phosphatase 110, Troponin I < 0.01, Total Protein 6.8, Albumin 4.4 D, Globulin 2.4, Albumin/Globulin Ratio 1.8, Triglycerides 140, Cholesterol 155, LDL Cholesterol Direct 94.45 L, VLDL Cholesterol 28, HDL Cholesterol 27 L, Cholesterol/HDL Ratio 5.7 H, Lipase 345 H 05/13/24 06:17: POC Glucose 215 H 05/13/24 06:30: WBC 9.4, RBC 4.88, Hgb 15.6, Hct 43.8, MCV 89.6, MCH 32.0 H, MCHC 35.6 H, RDW 13.2, Plt Count 166, MPV 8.7, Neut % (Auto) 59.3, Lymph % (Auto) 32.4, [place] % (Auto) 7.5, Eos % (Auto) 0.3, Baso % (Auto) 0.5, Neut # (Auto) 5.6, Lymph # (Auto) 3.1, [place] # (Auto) 0.7, Eos # (Auto) 0.0, Baso # (Auto) 0.1, Sodium 128 L, Potassium 3.2 L, Chloride 95 L, Carbon Dioxide 26, Anion Gap 10.2, BUN 14, Creatinine 0.90, Estimated Creat Clear 86, Estimated GFR 86, Est GFR ( Amer) 104, Glucose 204 H, Calcium 8.5, Total Bilirubin 1.1, AST 19, ALT 15, Alkaline Phosphatase 98, Total Protein 6.1 L, Albumin 3.9 D, Globulin 2.2, Albumin/Globulin Ratio 1.8, Lipase 269 05/13/24 10:03: POC Glucose 188 H Assessment and Plan *Assessment and plan (1) Cholecystitis: Status: Acute Category: Medical Code(s): K81.9 - Cholecystitis, unspecified (2) Acute pancreatitis: Status: Acute Category: Medical Code(s): K85.90 - Acute pancreatitis without necrosis or infection, unspecified (3) Epigastric pain: Status: Acute Category: Medical Code(s): R10.13 - Epigastric pain Plan No signs of acute pancreatitis on CT scan and limited imaging on ultrasound possible cholecystitis patient has responded well to treatment overnight. thinks that he has had intermittent episodes at this more than just 2 weeks ago and this past weekend. Given the lipase over 1500, it is possible he had some mild interstitial pancreatitis that did not show on imaging. He feels significantly better today and is would like to eat and go home if possible. I think that is reasonable and I plan to see him in the office for close follow-up. Thanks to the hospitalist team for their assistance. He is non drinker and no gallstones seen on imaging. I am happy to see this patient as an outpatient and may do a HIDA scan as an outpatient.
--- NOTE | 2024-05-13 14:30 | PC.NURSE ---
Aox 4, up ad maximino, 20g L FA LR@ 125 ML/HR, 90'S ON RA, no c/o pain or n/v, lovenox refused, GI following, 2 doses of potassium iv today.
[2024-05-13 16:00] VITALS: BP 123/87; PULSE 67; RESP 18; TEMP 37.6; O2SAT 97
[2024-05-13 16:30] LABS: POC Glucose,Bedside 233 (70-110)
[2024-05-13 20:00] VITALS: BP 121/71; PULSE 75; RESP 16; TEMP 37.2; O2SAT 97
[2024-05-13] MEDS: PRAVASTATIN 20MG TAB 20 MG PO (20:15)
[2024-05-13] MEDS: AMITRIPTYLINE 50MG TABLET 50 MG PO (20:15)
[2024-05-14] VITALS: BP 107/69; PULSE 60; RESP 16; TEMP 37.1; O2SAT 97
[2024-05-14 00:08] LABS: POC Glucose,Bedside 200 (70-110)
[2024-05-14 04:00] VITALS: BP 120/76; PULSE 55; RESP 16; TEMP 36.6; O2SAT 98; BMI 21.9
--- NOTE | 2024-05-14 04:28 | PC.NURSE ---
Addendum entered by Sidra Olson RN 05/14/24 06:12: Patient's fingerstick glucose reading at 21:00 was 200 and at 06:00 this morning, it was 156. Patient appeared very ill-tempered with staff this morning during fingerstick at bedside, as well as with lab staff, requesting to postpone his lab draws at this time. Patient has refused insulin coverage at both required times this shift. Original Note: Patient is alert and oriented x4. Patient was visited earlier this shift in the evening by friends alongside his , playing card games and listening to music. Patient ambulates independently in his room with no difficulties presented. Patient was observed to have eyes closed, respirations even and unlabored on room air, and no apparent distress throughout the majority of the night. Upon auscultation, his lung sounds were clear and bowel sounds were active; however, patient has not voiced having a bowel movement for a while and has not had one for this shift. S1/S2 heart sounds were heard. Patient did not report having any abdominal pain or nausea/vomiting this shift. Patient reports feeling much better. Patient received his scheduled PO medications per OCT and currently has lactated ringers infusing at 125 mL/hr. Patient refused insulin injections for his hospital stay despite elevated glucose readings. At this time, the patient does not have any further complaints. He is currently resting supine in bed with his in the chair at bedside. Vital signs have remained stable this shift. Gastroenterology will continue a follow-up with the patient per consultation report. No acute changes noted thus far. Call light within reach.
[2024-05-14 07:28] LABS: Basophils % 0.7 % (0.1-2.0); Eosinophils % 0.5 % (0.1-12.0); Hematocrit 39.5 % (42.0-52.0); Hemoglobin 14.1 g/dL (14.1-18.0); Lymphocytes # 2.8 K/mm3 (0.7-4.5); Lymphocytes % 44.4 % (10-50); Mean Corpuscular HGB Conc 35.8 g/dL (31.8-35.4); Mean Corpuscular Hemoglobin 32.4 pg (27.0-31.2); Mean Corpuscular Volume 90.5 fl (80-94); Mean Platelet Volume 8.6 fl (7.4-10.4); Monocytes # 0.4 K/mm3 (0.1-1.0); Monocytes % 6.8 % (1.7-9.3); Neutrophils % 47.6 % (37.0-80.0); Platelet Count 142 K/mm3 (142-424); Red Blood Count 4.36 M/mm3 (4.60-6.20); Red Cell Distribution Width 13.1 % (11.5-17.5); White Blood Count 6.4 K/mm3 (4.8-10.8)
[2024-05-14 07:36] LABS: Albumin Level 3.2 g/dl (3.5-5.0); Chloride 99 mmol/L (98-107); Potassium 3.1 mmoL/L (3.5-5.1); Sodium 130 mmol/L (136-145)
[2024-05-14 07:39] LABS: Alanine Aminotransferase 14 U/L (12-78); Albumin/Globulin Ratio 1.5 (1.1-1.8); Alkaline Phosphatase 74 U/L (38-126); Anion Gap 4.1 mEq/L (5-15); Aspartate Amino Transferase 17 U/L (17-59); Bilirubin,Total 0.9 mg/dl (0.2-1.3); Blood Urea Nitrogen 13 mg/dl (9-20); Calcium 8.1 mg/dl (8.4-10.2); Carbon Dioxide 30 mmol/L (22.0-30.0); Creatinine Clearance Estimated 86 mL/min (50-200); Estimated Glomerular Filt Rate 86 ml/min (>60); GFR (African American) 104 ML/MIN (>60); Globulin 2.1 g/dL (1.3-3.2); Glucose 147 mg/dl (74-100); Total Protein,Serum 5.3 g/dl (6.3-8.2)
--- NOTE | 2024-05-14 07:43 | EXP.DC.SUM ---
General Admission date:: 05/12/24 Discharge date: 05/14/24 HPI HPI HPI: This is a 59-year-old male with history of diabetes and sphincter of Oddi dysfunction diagnosed about 10 years ago who was seen in our office yesterday for nausea vomiting abdominal pain, fever chills and bodyaches at home. Patient was exquisitely tender to palpation right upper quadrant epigastric and left upper quadrant. He had had intractable nausea and vomiting since Sunday and no bowel movement since Sunday. He had dry mucous membranes. He was able to drink but not keep food down. He was urinating. Sent for stat CT and lab work. Labs showed a lipase level over 1500 with elevated white blood cell count over 14. He did have glucose level of 305 with known diabetes. He was hyponatremic at 129. CT scan showed some mild wall thickening of the gallbladder but no obvious pancreatitis. Discussed with the hospitalist who agreed to direct admission. He has been treated with electrolyte replacement and IV fluids. He started to have great improvement of his symptoms. His lipase level dropped into the 300s. His white blood cell count was down just above 10. Today the patient has had resolution of his abdominal pain. Gallbladder ultrasound notes mild wall thickening but no gallstones seen and pancreas is partially obscured. He is wanting to go home today. Hospital Course Hospital Course Hospital Course: Paul Bettencourt is a 59 year old made with a medical history significant for type 2 diabetes, hypertension who is a direct admit from our GI clinic for intractable nausea/vomiting and abdominal pain. I spoke with patient's PCP Angeline Vela and accepted patient for direct admission after CT abdomen revealed gallbladder wall thickening and outpatient bloodwork revealed elevated lipase to 1595 suggesting acute gallstone pancreatitis. On arrival to the floor, patient was sitting comfortably in chair without acute distress. He states he has been have N/V since Sunday (5 days) which has actually improved today, however he states he has not tried to eat anything today. He reports eating a large meal on Sunday and soon after symptoms of epigastric and RUQ abdominal began with non-bilious vomiting. Denies diarrhea. He went to his GI office yesterday who obtained blood and CT abdomen/pelvis with findings mentioned. Patient denies alcohol use, with no history of pancreatitis or cholecystisis. 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 Feeling somewhat better this morning. GI has seen patient. Given his improvement in symptoms, diet advanced. Tolerating intake. Pain more or less resolved. Needs outpatient follow-up with HIDA scan. Stable to discharge home for further management as an outpatient. Problems addressed as follows: #Suspected acute gallstone pancreatitis, resolving #Mild cholecystitis, resolving #Intractable nausea/vomiting, resolving - CT abdomen/pelvis on 05/12/24 shows nonspecific gallbladder wall thickening. Outpatient lipase elevated to 1595, ALP mildly elevated 128. Na 126. Patient's symptoms improved during admission. No further nausea or vomiting. Able to advance diet to full liquids. Lipase stable during admission with no further increase. Clinically improving with resolution of pain. Sodium improved to 130. GI was consulted, discussed case during admission, recommend advancing diet with further outpatient management. Will need HIDA scan to evaluate gallbladder. Concern for need for elective cholecystectomy as an outpatient. Stable to discharge home as he is tolerating p.o. intake with more or less resolution of his pain. #Type 2 diabetes -A1c elevated at 7.7. Previously on glipizide and metformin. Metformin was stopped due to concern for risk to his liver and he was having low blood sugars later in the day. Recommended he stop glipizide and resume metformin. Recommend discussing further medical management with his PCP at follow-up. Needs repeat A1c in 3 months. #Hypertension - Continue amlodipine 10 mg daily, carvedilol 25 mg twice daily. Continue Elavil 50 mg nightly for sleep and mood. Along with trazodone 100 mg nightly. Exam Data for Last 24 hours Vital signs and Labs for Last 24 Hours: Temp Pulse Resp BP Pulse Ox O2 Del Method 97.9 F 55 L 16 120/76 98 Room Air 05/14/24 04:00 05/14/24 04:00 05/14/24 04:00 05/14/24 04:00 05/14/24 04:00 05/14/24 07:00 Laboratory Results - last 24 hr 05/13/24 06:30: Lipase 269 05/13/24 10:03: POC Glucose 188 H 05/13/24 16:22: POC Glucose 233 H 05/13/24 20:08: POC Glucose 200 H 05/14/24 07:12: WBC 6.4 D, RBC 4.36 L, Hgb 14.1, Hct 39.5 L, MCV 90.5, MCH 32.4 H, MCHC 35.8 H, RDW 13.1, Plt Count 142, MPV 8.6, Neut % (Auto) 47.6, Lymph % (Auto) 44.4, [place] % (Auto) 6.8, Eos % (Auto) 0.5, Baso % (Auto) 0.7, Neut # (Auto) 3.0, Lymph # (Auto) 2.8, [place] # (Auto) 0.4, Eos # (Auto) 0.0, Baso # (Auto) 0.0, Sodium 130 L, Potassium 3.1 L, Chloride 99, Carbon Dioxide 30, Anion Gap 4.1 L, BUN 13, Creatinine 0.90, Estimated Creat Clear 86, Estimated GFR 86, Est GFR ( Amer) 104, Glucose 147 H, Calcium 8.1 L, Total Bilirubin 0.9, AST 17, ALT 14, Alkaline Phosphatase 74, Total Protein 5.3 L, Albumin 3.2 L D, Globulin 2.1, Albumin/Globulin Ratio 1.5 I & O for Last 24 hours: Intake & Output 05/11/24 05/12/24 05/13/24 05/14/24 23:59 23:59 23:59 23:59 Intake Total 2480 / 2680 200 / 200 Output Total 0 / 0 0 / 0 Balance 2480 / 2680 200 / 200 Weight 69.536 kg 69.536 kg Constitutional Constitutional: no acute distress, thin and cooperative *Routine HEENT Exam Head: Present normocephalic Eye: Present EOMI and PERRL ENT: Present mucous membranes moist *Routine Neck Exam Neck: Present supple; Absent lymphadenopathy *Routine Respiratory Exam Respiratory: Present CTA bilaterally; Absent rhonchi, wheezes or crackles *Routine Cardiovascular Exam Cardiovascular: Present RRR *Routine Abdominal Exam Abdominal: Present soft, normoactive bowel sounds and tenderness (minimal in upper quadrants); Absent distended *Routine Rectal Exam Patient deferred: visual exam *Routine Exam Patient deferred: penile exam *Routine Extremities Exam Extremities: Absent cyanosis, clubbing or edema *Routine Skin Exam Skin: Present warm; Absent rash *Routine Neurological Exam Neurological: Present alert, oriented X3 and moving all extremities; Absent altered mental status Results Data Completed and Pending Labs on day of discharge: Labs from last 24 hours 05/14/24 05/13/24 05/13/24 07:12 20:08 16:22 WBC 6.4 D RBC 4.36 L Hgb 14.1 Hct 39.5 L MCV 90.5 MCH 32.4 H MCHC 35.8 H RDW 13.1 Plt Count 142 MPV 8.6 Neut % (Auto) 47.6 Lymph % (Auto) 44.4 [place] % (Auto) 6.8 Eos % (Auto) 0.5 Baso % (Auto) 0.7 Neut # (Auto) 3.0 Lymph # (Auto) 2.8 [place] # (Auto) 0.4 Eos # (Auto) 0.0 Baso # (Auto) 0.0 Sodium 130 L Potassium 3.1 L Chloride 99 Carbon Dioxide 30 Anion Gap 4.1 L BUN 13 Creatinine 0.90 Estimated Creat Clear 86 Estimated GFR 86 Est GFR ( Amer) 104 Glucose 147 H POC Glucose 200 H 233 H Calcium 8.1 L Total Bilirubin 0.9 AST 17 ALT 14 Alkaline Phosphatase 74 Total Protein 5.3 L Albumin 3.2 L D Globulin 2.1 Albumin/Globulin Ratio 1.5 Lipase 05/13/24 05/13/24 10:03 06:30 WBC RBC Hgb Hct MCV MCH MCHC RDW Plt Count MPV Neut % (Auto) Lymph % (Auto) [place] % (Auto) Eos % (Auto) Baso % (Auto) Neut # (Auto) Lymph # (Auto) [place] # (Auto) Eos # (Auto) Baso # (Auto) Sodium Potassium Chloride Carbon Dioxide Anion Gap BUN Creatinine Estimated Creat Clear Estimated GFR Est GFR ( Amer) Glucose POC Glucose 188 H Calcium Total Bilirubin AST ALT Alkaline Phosphatase Total Protein Albumin Globulin Albumin/Globulin Ratio Lipase 269 DS: Diagnosis Discharge Diagnosis (1) Nausea & vomiting: Status: Acute Code(s): R11.2 - Nausea with vomiting, unspecified (2) Epigastric pain: Status: Acute Code(s): R10.13 - Epigastric pain (3) Acute pancreatitis: Status: Acute Code(s): K85.90 - Acute pancreatitis without necrosis or infection, unspecified (4) Cholecystitis: Status: Resolved Code(s): K81.9 - Cholecystitis, unspecified (5) Diabetes: Status: Acute Code(s): E11.9 - Type 2 diabetes mellitus without complications (6) HTN (hypertension): Status: Acute Code(s): I10 - Essential (primary) hypertension Meds Home Medications and Allergies Home Medications ?Medication ?Instructions ?Recorded ?Confirmed ?Type amitriptyline 50 mg tablet 50 mg PO HS 05/12/24 05/12/24 History amlodipine 10 mg tablet 10 mg PO DAILY 05/12/24 05/12/24 History carvedilol 25 mg tablet 25 mg PO BID 05/12/24 05/12/24 History glipizide 5 mg tablet 5 mg PO DAILY 05/12/24 05/12/24 History pravastatin 20 mg tablet 20 mg PO HS 05/12/24 05/12/24 History trazodone 100 mg tablet 100 mg PO HS 05/12/24 05/13/24 History New Prescriptions to Start Prescriptions: Allergies Allergy/AdvReac Type Severity Reaction Status Date / Time Lisinopril AdvReac Uncoded 05/12/24 12:53 Discharge Plan Disposition Patient Disposition: Home, Self-Care Condition: Good Follow up Plan Follow up with: Angeline Vela APRN [Nurse Practitioner] - 05/28/24 10:00 am (2 weeks after discharge) Haroon Damian MD [Primary Care Provider] - 06/23/24 12:30 pm (please bring your photo id, insurance card, medications and medical records) Prescriptions/Medication Reconciliation: Continued trazodone 100 mg tablet 100 mg PO HS glipizide 5 mg tablet 5 mg PO DAILY amitriptyline 50 mg tablet 50 mg PO HS carvedilol 25 mg tablet 25 mg PO BID Rx Instructions: must administer with a meal/food amlodipine 10 mg tablet 10 mg PO DAILY pravastatin 20 mg tablet 20 mg PO HS Problem Reconciliation Problems Reviewed?: Yes Patient Discharge Instructions ACTIVITY: Continue current activity DIET: continue same diet and advance to your usual diet Patient Instructions: DI for Cholecystitis Print Language: Yakut Providers Primary Care Provider: Haroon Damian Admit Provider: Desmond Malin Attending Provider: Desmond Malin
[2024-05-14 08:00] VITALS: BP 139/53; PULSE 55; RESP 16; TEMP 37; O2SAT 96
[2024-05-14] MEDS: LACTATED RINGERS 1000ML 1,000 ML 125 ML IV ×2 (08:15)
[2024-05-14 08:17] LABS: Hemoglobin A1C 7.7 % (4.0-6.0)
--- NOTE | 2024-05-16 13:51 | SW/DCPLANNER ---
Hospital follow up phone call: patient stated that he is feeling better. Patient expressed the wonderful care from Med/Surg nursing staff during his stay. Patient is aware of his follow up appointments. No further needs/questions at this time.
== END 2024-05-14 09:48 | disposition home or self-care (01) ==
PROVIDERS: Internal Medicine Adolescent Medicine; Nurse Practitioner Family; Admitting Provider Student in an Organized Health Care Education/Training Program; PCP Family Medicine; Visit Provider Student in an Organized Health Care Education/Training Program
DX: K85.10 Biliary acute pancreatitis without necrosis or infection (principal); K81.9 Cholecystitis, unspecified; E11.9 Type 2 diabetes mellitus without complications; I10 Essential (primary) hypertension; R11.2 Nausea with vomiting, unspecified; R10.13 Epigastric pain; Z79.899 Other long term (current) drug therapy
CPT/HCPCS: 36415; 76705; 80053; 80061; 82962; 83036; 83605; 83690; 84484; 85025; 93005; G0378; J1650; J3480; J7030; J7120

== ENCOUNTER 2024-05-21 10:19 | Outpatient (CLI) | payer BC, SELFPAY ==
--- NOTE | 2024-05-21 10:20 | NM_ITS ---
FINAL REPORT CLINICAL HISTORY: Intermittent abdominal pain nausea and vomiting 10:30AM 8.48 MCI TC CHOLETEC 1.4 MCG CCK NO PAIN WITH CCK COMPARISON: None FINDINGS: Sequential anterior projection images of the abdomen were obtained after the intravenous injection of 8.48 mCi technetium 99m Choletec. There is normal uptake of radiotracer by the liver. The bile ducts are visualized by 15 minutes. Gallbladder activity is seen by 25 minutes. Bowel activity is noted by 15 minutes. After 1 hour, 1.4 ?g of CCK was injected intravenously for calculation of gallbladder ejection fraction. The gallbladder ejection fraction is 29%, which is depressed. IMPRESSION: No evidence of cystic duct or bile duct obstruction. Gallbladder ejection fraction of 29%, depressed, suggestive of biliary dyskinesia. Reviewed, Interpreted and Dictated by Ivan Rodriguez MD Transcribed by Laura Garg Authenticated and . [facility]
[2024-05-21] MEDS: SINCALIDE 1.4 MCG in 0.9 % SODIUM CHLORIDE 50 ML 100 MCG IV (12:18)
[2024-05-21] MEDS: SODIUM CHLORIDE 0.9% 10ML SYR (RAD ONLY) 10 ML IV (12:18)
[2024-05-21] MEDS: ISOTOPE CHOLETECH;1 DOSE (UP TO 15 MCI) IV (12:18)
== END 2024-05-21 23:59 | disposition home or self-care (01) ==
LOC: RAD 10:20
PROVIDERS: PCP Family Medicine; Visit Provider Nurse Practitioner Family
DX: R11.2 Nausea with vomiting, unspecified (principal); R10.13 Epigastric pain; R10.11 Right upper quadrant pain
CPT/HCPCS: 78227; A9537; J2805